=== PATIENT | male | born 1965 | race Caucasian/White ===

== ENCOUNTER 2024-04-20 06:44 | Day surgery (SDC) | payer BC, SELFPAY ==
[2024-04-04 12:50] VITALS: BMI 25.0
[2024-04-04 14:03] LABS: Hematocrit 40.8 % (39.0-52.0); Hemoglobin 13.4 g/dL (13.0-18.0); Mean Corp Hgb Conc. 32.8 g/dL (33.0-37.0); Mean Corpuscular Hgb 28.8 pg (27.0-31.0); Mean Corpuscular Volume 87.6 fL (80.0-94.0); Mean Platelet Volume 9.8 fL (7.4-10.4); Platelet Count 389 10^3/uL (130-400); Red Blood Cell Count 4.66 10^6/uL (4.70-6.10); White Blood Cell Count 11.1 10^3/uL (4.8-10.8)
[2024-04-04 14:07] LABS: INR 1.04; PT 14.1 Sec (11.4-14.6)
[2024-04-04 14:08] LABS: APTT 33.5 Sec (23.4-35.0)
[2024-04-04 14:11] LABS: HCG, Urine Qualitative Screen Negative
[2024-04-04 14:40] LABS: ALT (SGPT) 29 U/L (0-50); AST (SGOT) 31 U/L (17-59); Albumin 4.2 g/dl (3.5-5.0); Alkaline Phosphatase 83 U/L (38-126); Blood Urea Nitrogen 16 mg/dl (9-20); Calcium 9.3 mg/dl (8.4-10.2); Carbon Dioxide 33 mmol/L (22-30); Chloride 99 mmol/L (98-107); Estimated Creatinine Clearance 103 ml/min; Glucose 101 mg/dl (70-99); Potassium 4.3 mmol/L (3.5-5.1); Sodium 138 mmol/L (135-145); Total Bilirubin 0.5 mg/dl (0.2-1.3); Total Protein 6.6 g/dl (6.3-8.2); eGFR > 60.00
[2024-04-20] VITALS (10 sets, daily range): BP systolic 96–121; BP diastolic 59–74; BMI 25.0
[2024-04-20] MEDS: NORMOSOL-R/PLASMALYTE-A 1000 IV (12:45)
== END 2024-04-20 19:01 | disposition home or self-care (01) ==
LOC: SDS 06:44
PROVIDERS: ATTENDING PHYSICIAN Otolaryngology; FAMILY PHYSICIAN Family Medicine
DX: K11.5 Sialolithiasis (principal); K11.23 Chronic sialoadenitis
CPT/HCPCS: 42440; 88307; 36415; 80053; 81025; 85027; 85610; 85730; 93005